=== PATIENT | female | born 1950 | race Caucasian/White ===

== ENCOUNTER 2016-09-05 12:48 | Inpatient (IN) | payer MEDICAID, OTHER ==
[~2016-09-05] VITALS: Ht 154.9 cm; Wt 50.2 kg
[2016-09-05 12:50] VITALS: BP 147/75; PULSE 74; RESP 22; TEMP 97.5; O2SAT 97
--- NOTE | 2016-09-05 13:39 | NUR ---
BROUGHT BACK TO BED #4 AND REPORT GIVEN TO LESLIE PT WAS OUTSIDE SMOKING WHILE WAITING FOR HOSPITAL ER BED
[2016-09-05] MEDS ORDERED: LEVOFLOXACIN 500 MG/D5W 100 ML IV ONE (13:45)
[2016-09-05] MEDS ORDERED: ALBUTEROL SULFATE 0.083% 2.5 MG/3 ML VIAL.NEB INH PRN (13:45)
[2016-09-05] MEDS ORDERED: IPRATROPIUM BROM 0.5 MG/2.5 ML VIAL.NEB (ATROVENT) INH ONE (13:45)
--- NOTE | 2016-09-05 13:54 | NUR ---
ER at bedside examining patient.
--- NOTE | 2016-09-05 13:54 | NUR ---
# 20 gauge angiocath placed to LFA. Use of asceptic technique. Opsite placed over site. Blood return noted. Blood for lab drawn from site. Flushed with 10 cc of normal saline. No evidence of infiltration noted. Patient tolerated well.
--- NOTE | 2016-09-05 13:54 | NUR ---
Placed on air sampling and monitoring, blood pressure machine and pulse oximeter. To gown for exam. Side rails up.
--- NOTE | 2016-09-05 13:55 | NUR ---
Pt brought in by Her granddaughter,c/o shortness of breath since yesterday, pt awake,alert,oriented x 4.speak full sentences. wheezing bilaterally, mild distress .
[2016-09-05 14:00] LABS: BILIRUBIN,URINE NEGATIVE (NEGATIVE); BLOOD, URINE 1+ (NEGATIVE); CLARITY/URINE CLOUDY (CLEAR); COLOR,URINE YELLOW (YELLOW); GLUCOSE,URINE 3+ (NEGATIVE); KETONES,URINE NEGATIVE (NEGATIVE); LEUKOCYTE ESTERASE ,URINE 1+ (NEGATIVE); NITRITE, URINE POSITIVE (NEGATIVE); PH,URINE 6.5 (5.0-8.0); PROTEIN URINE TRACE (NEGATIVE)
[2016-09-05 14:08] LABS: BACTERIA,URINE MANY /HPF (None Seen)
[2016-09-05 14:23] LABS: CALCIUM 8.5 mg/dL (8.4-11.0); CREATININE 0.69 mg/dL (0.55-1.30); INR 1.1 (0.8-1.2); POTASSIUM 3.5 mmol/L (3.5-5.1); PROTHROMBIN TIME 11.6 SECS (9.5-12.5)
[2016-09-05 14:25] LABS: BASOPHILS % (AUTO) 0.6 % (0.0-2.0); EOSINOPHILS # (AUTO) 0.1 K/uL (0.0-0.4); EOSINOPHILS % (AUTO) 1.3 % (0.0-4.0); HEMOGLOBIN 15.4 g/dL (12.0-16.0); LYMPHOCYTES # (AUTO) 1.9 K/uL (1.0-5.5); LYMPHOCYTES % (AUTO) 27.5 % (20.5-51.5); MEAN CORPUSCULAR HEMOGLOBIN 28 pg (27-31); MEAN CORPUSCULAR HGB CONC 32 % (32-36); MEAN CORPUSCULAR VOLUME 86 fL (79.0-98.0); MONOCYTES # (AUTO) 0.6 K/uL (0.0-1.0); MONOCYTES % (AUTO) 8.4 % (1.7-9.3); NEUTROPHILS # (AUTO) 4.2 K/uL (1.8-7.7); NEUTROPHILS % (AUTO) 62.2 % (40.0-70.0); PLATELET COUNT (AUTO) 198 K/uL (130-430); RED BLOOD CELL COUNT(AUTO) 5.58 MIL/uL (4.2-6.2); RED CELL DISTRIBUTION WIDTH 13.8 % (9.0-15.0); WHITE BLOOD COUNT (AUTO) 6.8 K/uL (4.8-10.8)
[2016-09-05 14:28] LABS: ALBUMIN 3.2 g/dL (3.4-4.8); TOTAL BILIRUBIN 0.4 mg/dL (0.0-1.0); TOTAL PROTEIN, SERUM 6.1 g/dL (6.4-8.3)
[2016-09-05] MEDS ORDERED: ALBUTEROL SULFATE 0.083% 2.5 MG/3 ML VIAL.NEB INH ONE (14:45)
[2016-09-05] MEDS ORDERED: POTASSIUM CHLORIDE 20 MEQ TAB.PRT.SR PO ONE (15:45)
[2016-09-05] MEDS ORDERED: INSULIN REGULAR, HUMAN 10 UNITS/0.1 ML INJ SUBCUT ONE (15:45)
[2016-09-05] MEDS ORDERED: NACL 0.9% 1,000 ML IV ONE (15:45)
--- NOTE | 2016-09-05 16:09 | NUR ---
accu-check blood surgar 146
--- NOTE | 2016-09-05 16:10 | NUR ---
pt unable to recall her home medication.
[2016-09-05 16:21] LABS: BLOOD GAS BASE EXCESS 1.5 mmol/L (-3.0-3.0); BLOOD GAS COHb% 3.7 % (0.5-1.5); BLOOD GAS PH 7.463 (7.350-7.450); BLOOD O2Hb% 89.7 % (94.0-97.0)
[2016-09-05 16:22] LABS: BLOOD GAS HHB 6.3 % (0.0-6.0)
--- NOTE | 2016-09-05 16:49 | NUR ---
Patient will be admitted to care of Dr mazariegos. Admitted to tele unit. Will go to room 130 a . Belongings list completed. Summary report printed. Report will be given at bedside.
[2016-09-05] MEDS: methylPREDNISolone SOD SUCC 40 MG/ML VIAL IVP SCH ×2 (17:00→23:07)
[2016-09-05] MEDS ORDERED: ACETAMINOPHEN 325 MG TABLET PO PRN (17:00)
--- NOTE | 2016-09-05 17:01 | NUR ---
ADMISSION NOTE Received patient from ER via [facility], received report from Elayne MENJIVAR. Patient admitted with diagnosis of COPD. Patient oriented to hospital routine, call light, toileting and safety-patient verbalized understanding.
[2016-09-05 17:04] VITALS: BP 136/71; PULSE 69; RESP 20; TEMP 97.9; O2SAT 96
[2016-09-05 17:05] VITALS: BP 140/72; PULSE 81
[2016-09-05] MEDS ORDERED: FAMOTIDINE 20 MG TABLET PO ONE (17:15)
[2016-09-05] MEDS: BENZONATATE 100 MG CAPSULE (TESSALON) PO SCH ×2 (17:45→20:41)
[2016-09-05] MEDS: LEVOFLOXACIN 500 MG/D5W 100 ML IV SCH (18:07)
[2016-09-05] MEDS: KCL 20 mEq in NS 1000 mL 1,000 ML IV SCH (18:07)
--- NOTE | 2016-09-05 18:32 | NUR ---
CLOSING NOTE: PATIENT IS RESTING COMFORTABLY IN SIDE OF BED. PATIENT IS EATING DINNER. NO S/S OF DISTRESS OR SOB. PATIENT IS ALERT AND ORIENTED, ABLE TO EXPRESS NEEDS, AND ASK FOR ASSISTANCE. IV IS PATENT AND INFUSING. CALL LIGHT IN REACH, BED IN LOWEST POSITION, AND WILL CONTINUE TO MONITOR. Addendum: 09/05/16 at 1833 by Lexus Tidwell RN WILL GIVE REPORT TO NIGHT NURSE.
[2016-09-05 19:40] VITALS: BP 152/58; PULSE 56; RESP 18; TEMP 98.3; O2SAT 97
--- NOTE | 2016-09-05 19:40 | NUR ---
Initial Notes Pt is A/Ox4. Pt denies any pain or sob. Pt requested to go outside and smoke, informed pt that she will be taken out later when time is available, pt agreed with plan. VSS. IV intact, but pt requested new IV site due to where IV is located. Will insert new IV site. BSC noted, and pt asked to call nurse for assistance. 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 Pt states she uses walker at home, walker noted next to bedside. Safety precautions in place, side rails up x3 with bed in lowest, locked position, bed alarm on at all times. All needs met at this time. Call light in hand. Will continue to monitor.
--- NOTE | 2016-09-05 20:00 | NUR ---
New IV site New IV site placed to RFA #22g on first attempt with good blood return, flushed well with 10cc of NS.
[2016-09-05] MEDS: BUDESONIDE 0.5 MG/2 ML AMPUL.NEB INH SCH (20:53)
[2016-09-05] MEDS: IPRATROPIUM/ALBUTEROL SULFATE 3 ML AMPUL.NEB INH SCH (20:53)
--- NOTE | 2016-09-05 22:00 | NUR ---
Took pt to smoke Pt out to smoke at this time.
--- NOTE | 2016-09-05 22:20 | NUR ---
Back from smoking Daughter Gaby at bedside. Daughter brought pt more cigarettes, cigarettes and 3 lighters placed placed in bag with pt's label, placed in pt's cubby in med room. Assisted pt to bedside commode, pt noted to void without difficulty. Assisted pt to bed safely. Bed alarm on. All needs met. Call light in reach. Will continue to monitor.
[2016-09-06] VITALS: BP 154/71; PULSE 61; RESP 17; TEMP 99; O2SAT 98
--- NOTE | 2016-09-06 00:30 | NUR ---
Resting Pt is sleeping at this time. No acute distress or sob noted. Vital signs stable. All needs met at this time. Call light in hand. Will continue to monitor.
[2016-09-06] MEDS: IPRATROPIUM/ALBUTEROL SULFATE 3 ML AMPUL.NEB INH SCH ×4 (01:05→20:15)
--- NOTE | 2016-09-06 02:12 | NUR ---
Sleeping Pt is sleeping comfortably at this time. No acute distress or sob noted. All needs met. Call light in hand. Will continue to monitor.
[2016-09-06] MEDS ORDERED: AZIT250T PO (03:05)
[2016-09-06] MEDS ORDERED: ALBU90AE IH (03:05)
[2016-09-06] MEDS ORDERED: IMO2 PO (03:05)
[2016-09-06 04:12] VITALS: BP 93/57; PULSE 98; RESP 16; TEMP 98.5; O2SAT 93
--- NOTE | 2016-09-06 05:13 | NUR ---
Rounds Pt is sleeping comfortably in bed. No acute distress or sob noted. Call light in hand. Will continue to monitor.
[2016-09-06] MEDS: INSULIN ASPART 100 UNITS/ML, 10 ML VIAL (NovoLOG) SUBCUT PRN ×4 (05:37→22:32)
[2016-09-06] MEDS: methylPREDNISolone SOD SUCC 40 MG/ML VIAL IVP SCH ×3 (05:50→22:30)
--- NOTE | 2016-09-06 06:29 | NUR ---
Closing Notes Pt is awake, resting in bed quietly. Denies any pain or sob. VSS. IV intact to RFA#22g with no s/s of infiltration. Blood sugar checked, 237, 4 units of novolog given SQ to ENRRIQUE as per sliding scale ordered. All needs met throughout shift. Will endorse care to am nurse. Call light in hand. Will continue to monitor.
[2016-09-06 07:21] LABS: BASOPHILS % (AUTO) 0.2 % (0.0-2.0); EOSINOPHILS % (AUTO) 0.1 % (0.0-4.0); HEMATOCRIT 48.1 % (36-48); HEMOGLOBIN 15.5 g/dL (12.0-16.0); LYMPHOCYTES # (AUTO) 0.8 K/uL (1.0-5.5); LYMPHOCYTES % (AUTO) 15.3 % (20.5-51.5); MEAN CORPUSCULAR HEMOGLOBIN 28 pg (27-31); MEAN CORPUSCULAR HGB CONC 32 % (32-36); MEAN CORPUSCULAR VOLUME 86 fL (79.0-98.0); MONOCYTES % (AUTO) 0.9 % (1.7-9.3); NEUTROPHILS # (AUTO) 4.6 K/uL (1.8-7.7); NEUTROPHILS % (AUTO) 83.5 % (40.0-70.0); PLATELET COUNT (AUTO) 172 K/uL (130-430); RED BLOOD CELL COUNT(AUTO) 5.61 MIL/uL (4.2-6.2); RED CELL DISTRIBUTION WIDTH 13.7 % (9.0-15.0); WHITE BLOOD COUNT (AUTO) 5.4 K/uL (4.8-10.8)
[2016-09-06 08:00] VITALS: BP 135/77; PULSE 85; RESP 20; TEMP 97.8; O2SAT 97
--- NOTE | 2016-09-06 08:00 | NUR ---
PATIENT IS A/OX4. SR ON MONITOR. IV SITE ON RFA, #22, INTACT AND PATENT. PATIENT IS ABLE TO AMBULATE WITH WALKER, GAIT STEADY. V/S STABLE. CALL LIGHT IN PLACE, BED LOCKED AND AT LOWEST POSITION, WILL CONTINUE TO MONITOR.
[2016-09-06] MEDS: BUDESONIDE 0.5 MG/2 ML AMPUL.NEB INH SCH ×2 (08:02→20:43)
[2016-09-06 08:06] LABS: CALCIUM 8.8 mg/dL (8.4-11.0); CREATININE 0.59 mg/dL (0.55-1.30); POTASSIUM 4.4 mmol/L (3.5-5.1)
[2016-09-06] MEDS: FAMOTIDINE 20 MG TABLET PO SCH (09:22)
[2016-09-06] MEDS: BENZONATATE 100 MG CAPSULE (TESSALON) PO SCH ×3 (09:22→21:00)
--- NOTE | 2016-09-06 09:45 | NUR ---
PATIENT WENT OUT TO SMOKE, ACCOMPANIED BY RN. NO SIGNS OF DISTRESS NOTED.
[2016-09-06] MEDS: metFORMIN HCL 500 MG TABLET PO SCH ×2 (11:45→16:52)
--- NOTE | 2016-09-06 12:00 | NUR ---
PATIENT IS HAVING LUNCH, NO SIGNS OF DISTRESS NOTED.
[2016-09-06 12:04] VITALS: BP 139/86; PULSE 75; RESP 19; TEMP 97; O2SAT 96
--- NOTE | 2016-09-06 14:15 | NUR ---
Discharge planning Received call from JOSE Ennis @ [facility] [phone]. FAX [phone] requesting information regarding this patient and possible transfer in network. Called and left message for Raymon explaining that plan is to DC patient home tomorrow and whether insurance still wants transfer in network.
[2016-09-06] MEDS: KCL 20 mEq in NS 1000 mL 1,000 ML IV SCH ×2 (14:46→22:35)
--- NOTE | 2016-09-06 15:15 | NUR ---
DR. HALL IS CALLED ON DOWNGRADING THE PATIENT TO MED SURG. DR. HALL AGREES, ORDER IS FOLLOWED.
[2016-09-06 16:51] VITALS: BP 140/82; PULSE 80; RESP 17; TEMP 97.6; O2SAT 97
[2016-09-06] MEDS: LEVOFLOXACIN 500 MG/D5W 100 ML IV SCH (16:54)
--- NOTE | 2016-09-06 18:00 | NUR ---
PATIENT IS TAKE OUTSIDE TO SMOKE. NO SIGNS OF DISTRESS NOTED.
[2016-09-06 19:50] VITALS: BP 121/50; PULSE 99; RESP 18; TEMP 96.8; O2SAT 95
--- NOTE | 2016-09-06 19:50 | NUR ---
INITIAL NOTES; -Pt is a/ox4, resting in bed. Pt denies any pain,sob,or any acute distress. IV site of left f/a patent,no s/s any infiltration noted. IVF DNS + 20 MEQ KCL @ 50m/hr. BSC with assistance. Pt is a smoker, instructed pt not to get out bed by self or to go outside to smoke by self, to use call light for assistance, pt verbalized understanding. Discussed poc,all safety measures, pain mgmt, pt verbalized understanding. Fall precaution in place. Call light /win reach. Continue to monitor pt.
--- NOTE | 2016-09-06 22:30 | NUR ---
ROUNDS; -Pt is resting in bed. Pt refused to take Tessalon po. Pt denies any pain,sob,or any acute distress. IV site of left f/a patent,no s/s any infiltration noted. IVF DNS + 20 MEQ KCL @ 50m/hr. Blood okqvp=434,gave 2 units of SSI Novolog subcut. Fall precaution in place. Call light /win reach. Continue to monitor pt.
[2016-09-07 00:23] VITALS: BP 121/56; PULSE 71; RESP 16; TEMP 98.1; O2SAT 92
--- NOTE | 2016-09-07 01:40 | NUR ---
ROUNDS; -Pt is sleeping. No s/s any pain,sob,or any acute distress noted. Fall precaution in place. Call light /win reach. Continue to monitor pt.
[2016-09-07] MEDS: IPRATROPIUM/ALBUTEROL SULFATE 3 ML AMPUL.NEB INH SCH ×3 (02:07→13:28)
--- NOTE | 2016-09-07 02:39 | NUR ---
ROUNDS; -Pt is sleeping. No s/s any pain,sob,or any acute distress noted. Fall precaution in place. Call light /win reach. Continue to monitor pt.
--- NOTE | 2016-09-07 04:12 | NUR ---
ROUNDS; -Pt is sleeping. No s/s any pain,sob,or any acute distress noted. Fall precaution in place. Call light /win reach. Continue to monitor pt.
[2016-09-07 04:35] VITALS: BP 122/56; PULSE 80; RESP 18; TEMP 97.4; O2SAT 94
[2016-09-07] MEDS: methylPREDNISolone SOD SUCC 40 MG/ML VIAL IVP SCH ×2 (06:12→15:23)
--- NOTE | 2016-09-07 06:12 | NUR ---
ROUNDS; -Pt awakes, resting in bed. Pt denies any pain,sob,or any acute distress. Blood kjwvh=152,gave 4 units of SSI Novolog subcut. Fall precaution in place. Call light /win reach. Continue to monitor pt.
[2016-09-07] MEDS: INSULIN ASPART 100 UNITS/ML, 10 ML VIAL (NovoLOG) SUBCUT PRN ×2 (06:15→12:00)
--- NOTE | 2016-09-07 07:55 | NUR ---
CLOSING NOTES; RESP TXMT GIVEN ALREADY -Pt is resting in bed. Pt denies any pain,sob,or any acute distress. IV site of left f/a patent,no s/s any infiltration noted. IVF DNS + 20 MEQ KCL @ 50m/hr. BSC with assistance. Fall precaution in place. Call light /win reach. Endorsed to oncoming nurse to continue care.
[2016-09-07] MEDS: BUDESONIDE 0.5 MG/2 ML AMPUL.NEB INH SCH (07:59)
[2016-09-07 08:00] VITALS: BP 132/66; PULSE 90; RESP 18; TEMP 97.4; O2SAT 97
--- NOTE | 2016-09-07 08:00 | NUR ---
initial notes rec patient awake alert sitting at the edge of the bed and eating breakfast. ivf infusing well on the r forearm. no infiltration noted. resp easy and unlabored.pt noted with on and off productive cough. bed in low position and side rails up and locked. call light within reached and knows when to call for assistance.
--- NOTE | 2016-09-07 10:00 | NUR ---
rounds due meds given as requested and requested to be wheeled outside to smoke. no acute distress noted.
[2016-09-07] MEDS: BENZONATATE 100 MG CAPSULE (TESSALON) PO SCH ×2 (10:01→15:23)
[2016-09-07] MEDS: FAMOTIDINE 20 MG TABLET PO SCH (10:02)
[2016-09-07] MEDS: metFORMIN HCL 500 MG TABLET PO SCH (10:02)
[2016-09-07 11:21] VITALS: BP 133/65; PULSE 79; RESP 18; TEMP 97.9; O2SAT 98
--- NOTE | 2016-09-07 12:00 | NUR ---
rounds pt eating lunch at the bedside, no hypo hyperglycemic reaction noted. call light within reached. no sob noted.
--- NOTE | 2016-09-07 14:44 | NUR ---
rounds seen by dr mazariegos at bedside. pt went out to smoke via wheelchair. no sob noted.
--- NOTE | 2016-09-07 15:00 | NUR ---
rounds seen by dr mazariegos and with order to be discharged.pt's requested to be wheeled outside to smoke no sob noted.
[2016-09-07 16:11] VITALS: BP 134/74; PULSE 100; RESP 18; TEMP 97.6; O2SAT 98
--- NOTE | 2016-09-07 16:28 | NUR ---
CALLED ATTENDING MD DR HALL, RE: ORDER FOR [facility]. SPOKE TO SAILAJA
[2016-09-07 18:03] VITALS: BP 134/74; PULSE 98; RESP 18; TEMP 97.6; O2SAT 98
--- NOTE | 2016-09-07 18:33 | NUR ---
closing notes pt grandson came to olive picker patient. dr mazariegos did not call back re med. instructed patient on her appt on mon with pmd to ask her re glucophage med. no sob noted was wheeled outside via wheelchair. stable and needs attended. hep lock and id band was removed.
[2016-09-07] MEDS ORDERED: LACTOBACILLUS RHAMNOSUS GG 1 CAP CAPSULE PO SCH (21:00)
--- NOTE | 2016-09-10 12:10 | NUR ---
DISCHARGE PLANNING Called JOSE Ennis at [facility] [phone] left voice message requesting return call back with contracted DME for requested FWW. Will follow up. Addendum: 09/10/16 at 1942 by Haylee Sage DP Received call back from Raymon at [facility]. Faxed DME order for FWW to contracted vendor [phone]. Will follow up. Addendum: 09/10/16 at 8470 by Haylee Sage DP Spoke with Mike at [facility] who confirmed fax was received and order will be processed. Mike stated requested FWW will be shipped to patient home within one business day.
--- NOTE | 2016-09-13 09:32 | NUR ---
Discharge Follow Up Phone Call Floral Design Teacher phoned patient, , on 09/11/16, 09/12/16, and 09/13/16 and left voicemail messages with offer of assistance and Social Service contact information. No further calls will be made; Floral Design Teacher will remain available.
== END 2016-09-07 18:25 | disposition home or self-care (01) | DRG 872 ==
LOC: SED 12:48 → STU 16:11 → SMU 09-06 21:07
PROVIDERS: ADMIT Internal Medicine; ATTEND Internal Medicine
DX: A41.9 Sepsis, unspecified organism (principal); J44.1 Chronic obstructive pulmonary disease with (acute) exacerbation; N39.0 Urinary tract infection, site not specified; I10 Essential (primary) hypertension; E78.5 Hyperlipidemia, unspecified; F17.210 Nicotine dependence, cigarettes, uncomplicated; E11.9 Type 2 diabetes mellitus without complications; B96.1 Klebsiella pneumoniae [K. pneumoniae] as the cause of diseases classified elsewhere; Z87.440 Personal history of urinary (tract) infections; Z88.6 Allergy status to analgesic agent; Z88.2 Allergy status to sulfonamides; Z88.8 Allergy status to other drugs, medicaments and biological substances
CPT/HCPCS: 36415; 36600; 71010; 80048; 80053; 81000-TC; 82803-TC; 82962; 83605; 83735-TC; 83880; 84484; 85025; 85610-TC; 87040-TC; 87086; 87186-TC; 93005; 94640; 94760; 96361; 96365; 99285; J1030; J1815; J1956; J3480; J7030

== ENCOUNTER 2016-10-16 22:06 | Inpatient (IN) | payer OTHER ==
[~2016-10-16] VITALS: Ht 154.9 cm; Wt 54.7 kg
[~2016-10-16 22:06] MED LIST: ALBU90AE IH
[2016-10-16 22:14] VITALS: BP_SYST 145
[2016-10-16] MEDS ORDERED: methylPREDNISolone SOD SUCC/PF 62.5 MG/ML VIAL IVP ONE (22:30)
[2016-10-16] MEDS ORDERED: MAGNESIUM SULFATE 50 ML IV ONE (22:30)
[2016-10-16] MEDS ORDERED: IPRATROPIUM BROM 0.5 MG/2.5 ML VIAL.NEB (ATROVENT) IH ONE (22:30)
[2016-10-16] MEDS ORDERED: ASPIRIN 325 MG TABLET PO ONE (22:30)
[2016-10-16] MEDS ORDERED: ALBUTEROL SULFATE 0.083% 2.5 MG/3 ML VIAL.NEB IH ONE (22:30)
[2016-10-16 22:58] LABS: CALCIUM 8.9 mg/dL (8.4-11.0); CHLORIDE 106 mmol/L (98-107); CREATININE 0.56 mg/dL (0.55-1.30); GLUCOSE 124 mg/dL (70-99); POTASSIUM 3.6 mmol/L (3.5-5.1); SODIUM SERUM 139 mmol/L (136-145); UREA NITROGEN, BLOOD 7 mg/dL (8-21)
[2016-10-16 23:02] LABS: ALANINE AMINOTRANSFERASE 25 U/L (12-78); ALBUMIN 3.1 g/dL (3.4-4.8); AMYLASE 26 U/L (0-100); ASPARTATE AMINOTRANSFERASE 47 U/L (10-37); CREATINE KINASE, TOTAL 20 U/L (26-192); LIPASE 64 U/L (73-393); TOTAL BILIRUBIN 0.4 mg/dL (0.0-1.0); TOTAL PROTEIN, SERUM 6.1 g/dL (6.4-8.3)
[2016-10-16 23:08] LABS: BASOPHILS # (AUTO) 0.1 K/uL (0.0-0.2); BASOPHILS % (AUTO) 0.7 % (0.0-2.0); EOSINOPHILS # (AUTO) 0.3 K/uL (0.0-0.4); EOSINOPHILS % (AUTO) 3.1 % (0.0-4.0); HEMATOCRIT 41.6 % (36-48); HEMOGLOBIN 13.9 g/dL (12.0-16.0); LYMPHOCYTES # (AUTO) 2.3 K/uL (1.0-5.5); LYMPHOCYTES % (AUTO) 21.1 % (20.5-51.5); MEAN CORPUSCULAR HEMOGLOBIN 29 pg (27-31); MEAN CORPUSCULAR HGB CONC 33 % (32-36); MEAN CORPUSCULAR VOLUME 86 fL (79.0-98.0); MONOCYTES # (AUTO) 0.9 K/uL (0.0-1.0); NEUTROPHILS # (AUTO) 7.3 K/uL (1.8-7.7); NEUTROPHILS % (AUTO) 67.1 % (40.0-70.0); PLATELET COUNT (AUTO) 220 K/uL (130-430); RED BLOOD CELL COUNT(AUTO) 4.85 MIL/uL (4.2-6.2); RED CELL DISTRIBUTION WIDTH 14.8 % (9.0-15.0); WHITE BLOOD COUNT (AUTO) 10.9 K/uL (4.8-10.8)
[2016-10-16 23:15] LABS: ANION GAP < 3 (5-15); GFR AFRICAN AMERICAN 139 mL/min (>90)
[2016-10-16] MEDS ORDERED: IOHEXOL 100 ML IV ONE (23:37)
[2016-10-16] MEDS ORDERED: cefTRIAXone 1 GM in D5W 50 ML IV ONE (23:45)
[2016-10-17] VITALS (8 sets, daily range): BP systolic 116–134
[2016-10-17] MEDS ORDERED: ALBUTEROL SULFATE 0.083% 2.5 MG/3 ML VIAL.NEB IH ONE
[2016-10-17] MEDS ORDERED: IPRATROPIUM BROM 0.5 MG/2.5 ML VIAL.NEB (ATROVENT) IH ONE
[2016-10-17 00:06] LABS: BILIRUBIN,URINE 1+ (NEGATIVE); BLOOD, URINE 1+ (NEGATIVE); CLARITY/URINE CLOUDY (CLEAR); COLOR,URINE YELLOW (YELLOW); GLUCOSE,URINE NEGATIVE (NEGATIVE); KETONES,URINE NEGATIVE (NEGATIVE); LEUKOCYTE ESTERASE ,URINE TRACE (NEGATIVE); NITRITE, URINE POSITIVE (NEGATIVE); PROTEIN URINE TRACE (NEGATIVE)
[2016-10-17] MEDS ORDERED: cefTRIAXone 1 GM VIAL ONE (00:09)
[2016-10-17 00:21] LABS: BACTERIA,URINE MANY /HPF (None Seen); WBC,URINE 20-50 /HPF (0-3)
[2016-10-17 00:22] LABS: CALCIUM OXALATE CRYSTALS,UR 0-10 /HPF (None Seen); MUCUS,URINE 1+ /LPF (None Seen)
[2016-10-17] MEDS ORDERED: GLUXR500 PO (01:32)
[2016-10-17] MEDS ORDERED: GABA-529 PO (01:32)
[2016-10-17] MEDS ORDERED: LORazepam 1 MG TABLET PO PRN (01:45)
[2016-10-17] MEDS ORDERED: IPRATROPIUM/ALBUTEROL SULFATE 3 ML AMPUL.NEB INH PRN (01:45)
[2016-10-17 02:42] LABS: BLOOD GAS PH 7.415 (7.350-7.450)
[2016-10-17 02:43] LABS: ABG TOTAL HEMOGLOBIN 14.6 G/dL (12.0-18.0); BLOOD GAS BASE EXCESS 4.5 mmol/L (-3.0-3.0); BLOOD O2Hb% 84.2 % (94.0-97.0)
[2016-10-17 02:44] LABS: BLOOD GAS HHB 9.4 % (0.0-6.0)
[2016-10-17] MEDS: INSULIN REGULAR, HUMAN 100 UNITS/ML, 10 ML VIAL (novoLIN R) SUBCUT PRN ×2 (06:11→12:13)
[2016-10-17] MEDS ORDERED: DEXTROSE 50%-WATER 50 ML DISP.SYRIN IVP PRN ×2 (07:00)
[2016-10-17] MEDS ORDERED: GLUCOSE 15 GM GEL (in 37.5 GM TUBE) PO PRN ×2 (07:00)
[2016-10-17] MEDS ORDERED: cefTRIAXone 1 GM in D5W 50 ML IV SCH (09:00)
[2016-10-17] MEDS ORDERED: DOCUSATE SODIUM 100 MG CAPSULE PO PRN (09:15)
[2016-10-17] MEDS ORDERED: ACETAMINOPHEN 325 MG TABLET PO PRN (09:15)
[2016-10-17] MEDS ORDERED: ONDANSETRON HCL 4 MG/2 ML VIAL IVP PRN (09:15)
[2016-10-17] MEDS ORDERED: MORPHINE 2 MG/ML INJ. SYRINGE IVP PRN (09:15)
[2016-10-17] MEDS ORDERED: POTASSIUM CHLORIDE 10 MEQ TAB.PRT.SR PO PRN (09:15)
[2016-10-17] MEDS ORDERED: ALBUTEROL SULFATE 90 MCG IH SCH (09:15)
[2016-10-17] MEDS ORDERED: ZOLPIDEM TARTRATE 5 MG TABLET PO PRN (09:15)
[2016-10-17] MEDS ORDERED: LORazepam 2 MG/ML VIAL IVP PRN (09:15)
[2016-10-17] MEDS ORDERED: MAGNESIUM SULFATE 50 ML IV PRN (09:15)
[2016-10-17] MEDS ORDERED: ALBUTEROL SULFATE 0.083% 2.5 MG/3 ML VIAL.NEB INH SCH (13:00)
[2016-10-17] MEDS ORDERED: SALMETEROL XINAFOATE 50 MCG 1 EA DISK.W.DEV INH SCH (21:00)
[2016-10-17] MEDS ORDERED: HEPARIN SODIUM,PORCINE 5000 UNITS/ML VIAL SUBCUT SCH (21:00)
[2016-10-17] MEDS ORDERED: GABAPENTIN 100 MG CAPSULE PO SCH (21:00)
== END 2016-10-17 20:55 | disposition short-term general hospital (02) | DRG 189 ==
LOC: SED 22:06 → SMU 10-17 01:44
PROVIDERS: ADMIT General Practice; ATTEND General Practice
DX: J96.01 Acute respiratory failure with hypoxia (principal); J44.1 Chronic obstructive pulmonary disease with (acute) exacerbation; N39.0 Urinary tract infection, site not specified; E44.0 Moderate protein-calorie malnutrition; L02.31 Cutaneous abscess of buttock; M79.81 Nontraumatic hematoma of soft tissue; K76.89 Other specified diseases of liver; F17.200 Nicotine dependence, unspecified, uncomplicated; E11.65 Type 2 diabetes mellitus with hyperglycemia; I10 Essential (primary) hypertension; E11.40 Type 2 diabetes mellitus with diabetic neuropathy, unspecified; Z88.6 Allergy status to analgesic agent; Z88.2 Allergy status to sulfonamides; Z88.8 Allergy status to other drugs, medicaments and biological substances; Z87.81 Personal history of (healed) traumatic fracture; Z68.22 Body mass index [BMI] 22.0-22.9, adult
CPT/HCPCS: 36415; 36600; 71010; 80053; 81000-TC; 82150-TC; 82550-TC; 82803-TC; 82962; 83605; 83690-TC; 84484; 85025; 85610-TC; 85730-TC; 87040-TC; 87086; 87186-TC; 93005; 94640; 96365; 96366; 96375; 99285; J0696; J1644; J1815; J2930; J3475; J7060; Q9967